=== PATIENT | male | born 1995 | race Caucasian/White ===

== ENCOUNTER 2017-04-02 19:13 | Emergency (ER) | payer OTHER ==
[~2017-04-02] VITALS: Ht 170.2 cm; Wt 82.5 kg
[~2017-04-02 19:13] MED LIST: DICY20TA59 PO; HYDR-3720 PO; HYDR-906 PO; LOPE2CAP PO; MECL25TA2 PO; ONDA4TAB14 PO
[2017-04-02 19:26] VITALS: Ht 170.2 cm; Wt 82.5 kg
[2017-04-02] MEDS ORDERED: PEN500 PO (20:32)
[2017-04-02] MEDS ORDERED: ACET-141 PO (20:33)
--- NOTE | 2017-04-02 20:45 | ERD ---
ER Documentation Chief Complaint Date/Time DATE: 04/02/17 TIME: 20:42 Chief Complaint sore throat x 3 days HPI This is a 21-year-old male presents to the ER with a sore throat for the last 3 days. Patient states that he noticed white spots in the back of his throat earlier today he does admit to fever he denies having a cough. He denies any difficulty in swallowing or breathing. Throat pain is worse whenever he swallows. There are no sick contacts at home. ROS 12 point review of systems was done, all negative except per HPI. Medications Home Meds Active Scripts Acetaminophen* (Acetaminophen*) 500 MG Extra Strength Tablet, 1000 MG PO Q8H Y for PAIN AND OR ELEVATED TEMP for 3 Days, TAB Prov:GISSELLE RUSSELL 04/02/17 Penicillin V Potassium* (Penicillin V K*) 500 Mg Tab, 500 MG PO TID for 10 Days , TAB Prov:GISSELLE RUSSELL 04/02/17 Ondansetron (Ondansetron Odt) 4 Mg Tab.rapdis, 4 MG PO Q8 Y for NAUSEA AND/OR VOMITING, #30 TAB Prov:BING BRAMBILA NP 06/23/16 Hydrocodone/Acetaminophen ([place] 5-325 Tablet) 1 Each Tablet, 1 TAB PO Q6H Y for SEVERE PAIN LEVEL 7-10, #20 TAB Prov:BING BRAMBILA NP 06/23/16 Dicyclomine Hcl* (Bentyl*) 20 Mg Tablet, 20 MG PO QID, #20 TAB Prov:BING BRAMBILA NP 06/23/16 Hydrocodone Bit-Acetaminophen* (Verona*) 7.5-325 Tablet, 1 TAB PO Q4H Y for PAIN , #14 TAB Prov:DEEPTHI FRYSTOLOS ATahmina DO 04/07/16 Meclizine Hcl* (Antivert*) 25 Mg Tablet, 25 MG PO Q6H Y for DIZZINESS, #20 TAB Prov:LEKKOS,APOSTOLOS A. DO 04/07/16 Loperamide Hcl* (Imodium*) 2 Mg Capsule, 2 MG PO .AFTER EA LOOSE BM Y for DIARRHEA, #10 TAB 0 Refills Prov:KARIN WHITE PA-C 03/21/16 Allergies Allergies: Coded Allergies: No Known Allergy (Unverified , 04/02/17) PMhx/Soc Medical and Surgical Hx: pt denies Medical Hx, pt denies Surgical Hx History of Surgery: Yes (right eye surgery) Anesthesia Reaction: No Hx Neurological Disorder: No Hx Respiratory Disorders: No Hx Cardiac Disorders: No Hx Psychiatric Problems: No Hx Miscellaneous Medical Probl: No Hx Alcohol Use: No Hx Substance Use: No Hx Tobacco Use: No Physical Exam Vitals Vital Signs Date Time Temp Pulse Resp B/P Pulse Ox O2 Delivery O2 Flow Rate FiO2 04/02/17 19:26 98.9 96 20 133/84 99 Physical Exam GENERAL: The patient is well-developed, well-nourished, in no acute distress. NECK: Cervical spine is non tender with no step off. Supple, no nuchal rigidity HEENT: Atraumatic. Pupils equal, round and reactive to light. Extraocular muscles are grossly intact. Conjunctivae pink, no discharge. Bilateral tympanic membranes are clear with no evidence of erythema, effusion or dulling of the light reflex. Bilateral tonsillar erythema with exudates. No uvular deviation no kissing tonsils. RESPIRATORY: Clear to auscultation bilaterally. There are no rales, wheezes or rhonchi. HEART: Regular rate and rhythm. No murmurs, clicks, rubs or gallops. NEUROLOGIC: Alert and oriented. SKIN: There is no rash. The skin is warm and dry. Procedures/MDM This is a 21-year-old male presents to the ER with a sore throat. Patient does appear to have strep throat he has bilateral tonsillar exudates. Suspicion for retropharyngeal abscess or peritonsillar abscess is low there is no uvular deviation or kissing tonsils. Patient does not have any problems swallowing he is able to swallow his own secretions. He does not have a muffled voice. Suspicion for epiglottitis or mono is low. Patient will be sent home with penicillin. He is to follow-up with his primary care doctor within 1-2 days return to ER sooner if symptoms worsen. My medical decision making shared with the patient understands and agrees with plan. Departure Diagnosis: Primary Impression: Strep throat Condition: Stable Patient Instructions: Strep Throat Additional Instructions: Llame al doctor CHRSITY y jose tameka ARIA PARA DENTRO DE 1-2 ALMEND[place]Z.Dgale a la secretaria que nosotros le instruimos hacer esta aria.Avise o llame si palomino condicin se empeora antes de la aria. Regresa aqui si peor o no mejor. GISSELLE RUSSELL Apr 02, 2017 20:45
== END 2017-04-02 20:41 | disposition home or self-care (01) ==
LOC: FTE 19:13
DX: J02.0 Streptococcal pharyngitis (principal)
CPT/HCPCS: 99283